=== PATIENT | female | born 1990 | race Caucasian/White ===

== ENCOUNTER 2019-07-25 09:55 | Emergency (ER) | payer BC ==
[~2019-07-25] VITALS: Ht 160 cm; Wt 59.9 kg
[2019-07-25 10:04] VITALS: Ht 160 cm; Wt 59.9 kg
[2019-07-25 11:39] VITALS: BP 122/82
== END 2019-07-25 11:01 | disposition home or self-care (01) ==
LOC: ED 09:55
DX: J06.9 Acute upper respiratory infection, unspecified (principal); Z20.828 Contact with and (suspected) exposure to other viral communicable diseases